=== PATIENT | male | born 1995 | race Caucasian/White ===

== ENCOUNTER 2018-01-14 11:54 | Emergency (ER) | payer MEDICAID, OTHER ==
[2018-01-14 12:05] VITALS: BP 138/78
--- NOTE | 2018-01-14 12:57 | EDPHY ---
H & P Time Seen by Provider: 01/14/18 12:29 HPI/ROS: This patient complains of swelling to the right index finger he said fingernail the concerns in for infection. Symptoms started 2 days prior to arrival in of worsened over that time. He describes mild to moderate pain. He has tried soaking in warm soapy water with no improvement he came in for evaluation accompanied by his grandmother. ROS: Constitutional: No fevers Integumentary: No other skin lesions or complaints Musculoskeletal: No bony pain the affected finger. 5 point review of symptoms is performed and otherwise negative with exception of pertinent positives and negatives listed in HPI and ROS Past Medical/Surgical History: Otherwise healthy Smoking Status: Current some day smoker Physical Exam: Physical Exam Vital signs are normal. General: No acute distress Cardiac: Brisk capillary refill is intact throughout. Skin: No rash or pallor. Extremities: Atraumatic normal except for right index finger Right index finger: Patient has paronychial fluctuance and eponychial erythema swelling and tenderness. Neuro: Alert and oriented with no sensorimotor deficits in the affected finger. Constitutional: Initial Vital Signs Temperature (C) 36.6 C 01/14/18 12:02 Heart Rate 50 L 01/14/18 12:02 Respiratory Rate 18 01/14/18 12:02 Blood Pressure 138/78 H 01/14/18 12:02 O2 Sat (%) 98 01/14/18 12:02 O2 Delivery Mode Room Air Allergies/Adverse Reactions: No Known Allergies Allergy (Unverified 01/14/18 12:02) Home Medications: Medication Instructions Recorded Cephalexin [Keflex (*)] 500 mg PO TID #30 cap 01/14/18 MDM/Departure - MDM Procedures: Simple I&D After verbal consent I cleaned the wound with alcohol swab and used a 11. Blade to make a small incision in the area fluctuance. Patient tolerated this well edema size air with release of a moderate amount of purulent material. There were no complications. Wound was then cleaned by our tech, bacitracin and Band- Aid applied. ED Course/Re-evaluation: Patient with simple paronychia without red 5 findings that would suggest osteomyelitis or other concerning findings. Will start him on Keflex, wound care. He understands need to return emergency department should develop worsening symptoms despite the treatment plan. - Depart Disposition: Home, Routine, Self-Care Clinical Impression: Paronychia of finger Qualifiers: Laterality: right Qualified Code(s): L03.011 - Cellulitis of right finger Condition: Good Instructions: Cephalexin (By mouth), Paronychia (ED) Additional Instructions: Diagnosis: Paronychia I drained your finger abscess today. Plan: Epsom salt soaks or if he gets dry, warm water soaks daily and gently massaged the affected area Keflex antibiotic Ibuprofen Tylenol for discomfort if needed Return for any significant worsening despite treatment plan Prescriptions: Cephalexin [Keflex (*)] 500 mg PO TID #30 cap Referrals: NONE *PRIMARY CARE P,. [Primary Care Provider] - As per Instructions
== END 2018-01-14 13:00 | disposition home or self-care (01) ==
LOC: CED 11:54
PROC: 0P9T3ZZ Drainage of Right Finger Phalanx, Percutaneous Approach (ICD-10-PCS; principal; 2018-01-14)
DX: L03.011 Cellulitis of right finger (principal); Z87.891 Personal history of nicotine dependence